=== PATIENT | male | born 1925 | race Caucasian/White ===

== ENCOUNTER 2017-06-09 22:09 | Inpatient (IN) | payer OTHER, MEDICARE ==
[2017-06-09 22:15] VITALS: BP 149/76; PULSE 70; RESP 16; TEMP 97.6; O2SAT 98
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
[2017-06-09 22:54] LABS: AUTOMATED NEUTROPHIL # 6.5 TH/MM3 (1.8-7.7); BASOPHIL % 0.6 % (0.0-2.0); EOSINOPHIL # 0.1 TH/MM3 (0-0.4); EOSINOPHIL % 0.7 % (0.0-4.0); HEMATOCRIT 37.7 % (39.0-51.0); HEMOGLOBIN 13.1 GM/DL (13.0-17.0); MEAN CELL VOLUME 89.4 FL (80.0-100.0); MEAN CORPUSCULAR HGB CONC 34.7 % (32.0-36.0); MEAN PLATELET VOLUME 7.1 FL (7.0-11.0); MONO % 6.8 % (0.0-8.0); MONOCYTE # 0.5 TH/MM3 (0-0.9); NEUT % 79.9 % (16.0-70.0); PLATELET COUNT 277 TH/MM3 (150-450); RED BLOOD COUNT 4.21 MIL/MM3 (4.50-5.90); RED CELL DISTRIBUTION WIDTH 13.9 % (11.6-17.2); WHITE BLOOD COUNT 8.1 TH/MM3 (4.0-11.0)
[2017-06-09 23:10] LABS: ALBUMIN 3.9 GM/DL (3.4-5.0); AST (GOT) 27 U/L (15-37); BICARBONATE 26.8 MEQ/L (21.0-32.0); BLOOD UREA NITROGEN 17 MG/DL (7-18); CALCIUM 9.2 MG/DL (8.5-10.1); CHLORIDE 100 MEQ/L (98-107); CREATININE 1.44 MG/DL (0.60-1.30); GLOMERULAR FILTRATION RATE 46 ML/MIN (>89); GLUCOSE,RANDOM 91 MG/DL (74-106); SODIUM (NA) 133 MEQ/L (136-145)
[2017-06-09 23:11] LABS: ALT (GPT) 49 U/L (12-78)
[2017-06-09 23:21] LABS: ALKALINE PHOSPHATASE 139 U/L (45-117); TOTAL BILIRUBIN ADULT 0.2 MG/DL (0.2-1.0)
[2017-06-10 00:25] LABS: BILIRUBIN, URINE NEG (NEG); BLOOD, URINE NEG (NEG); GLUCOSE,URINE NEG (NEG); HYALINE CAST, URINE 1 /lpf (RARE); KETONE, URINE NEG (NEG); MUCUS URINE FEW /lpf (OCC); NITRITE,URINE NEG (NEG); PH, URINE 5.5 (5.0-8.5); SQUAMOUS EPITHELIAL CELL URINE <1 /hpf (0-5); URINE COLOR YELLOW (YELLW/STRAW); URINE LEUKOCYTE ESTERASE NEG (NEG)
--- NOTE | 2017-06-10 00:42 | PD ---
Physical Exam Date Seen by Provider: Jun 10, 2017 Time Seen by Provider: 00:41 Narrative For full history and physical examination please see previous provider's note. Data Data Last Documented VS Vital Signs Date Time Temp Pulse Resp B/P (MAP) Pulse Ox O2 Delivery O2 Flow Rate FiO2 06/09/17 22:15 97.6 70 16 149/76 (100) 98 Orders Orders Complete Blood Count With Diff (06/09/17 22:22) Comprehensive Metabolic Panel (06/09/17 22:22) Thyroid Stimulating Hormone (06/09/17 22:22) Psych Screen (06/09/17 22:22) Drug Screen, Random Urine (06/09/17 22:22) Urinalysis - C+S If Indicated (06/09/17 23:50) Labs Laboratory Tests Test 06/09/17 22:40 06/10/17 00:05 White Blood Count 8.1 TH/MM3 Red Blood Count 4.21 MIL/MM3 Hemoglobin 13.1 GM/DL Hematocrit 37.7 % Mean Corpuscular Volume 89.4 FL Mean Corpuscular Hemoglobin 31.0 PG Mean Corpuscular Hemoglobin Concent 34.7 % Red Cell Distribution Width 13.9 % Platelet Count 277 TH/MM3 Mean Platelet Volume 7.1 FL Neutrophils (%) (Auto) 79.9 % Lymphocytes (%) (Auto) 12.0 % Monocytes (%) (Auto) 6.8 % Eosinophils (%) (Auto) 0.7 % Basophils (%) (Auto) 0.6 % Neutrophils # (Auto) 6.5 TH/MM3 Lymphocytes # (Auto) 1.0 TH/MM3 Monocytes # (Auto) 0.5 TH/MM3 Eosinophils # (Auto) 0.1 TH/MM3 Basophils # (Auto) 0.0 TH/MM3 CBC Comment DIFF FINAL Differential Comment Blood Urea Nitrogen 17 MG/DL Creatinine 1.44 MG/DL Random Glucose 91 MG/DL Total Protein 7.0 GM/DL Albumin 3.9 GM/DL Calcium Level 9.2 MG/DL Alkaline Phosphatase 139 U/L Aspartate Amino Transf (AST/SGOT) 27 U/L Alanine Aminotransferase (ALT/SGPT) 49 U/L Total Bilirubin 0.2 MG/DL Sodium Level 133 MEQ/L Potassium Level 4.7 MEQ/L Chloride Level 100 MEQ/L Carbon Dioxide Level 26.8 MEQ/L Anion Gap 6 MEQ/L Estimat Glomerular Filtration Rate 46 ML/MIN Thyroid Stimulating Hormone 3rd Gen 2.400 uIU/ML Urine Color YELLOW Urine Turbidity CLEAR Urine pH 5.5 Urine Specific [place] 1.013 Urine Protein NEG mg/dL Urine Glucose (UA) NEG mg/dL Urine Ketones NEG mg/dL Urine Occult Blood NEG Urine Nitrite NEG Urine Bilirubin NEG Urine Urobilinogen LESS THAN 2.0 MG/DL Urine Leukocyte Esterase NEG Urine RBC LESS THAN 1 /hpf Urine WBC 1 /hpf Urine Squamous Epithelial Cells <1 /hpf Urine Hyaline Casts 1 /lpf Urine Mucus FEW /lpf Microscopic Urinalysis Comment CULT NOT INDICATED Urine Opiates Screen NEG Urine Barbiturates Screen NEG Urine Amphetamines Screen NEG Urine Benzodiazepines Screen POS Urine Cocaine Screen NEG Urine Cannabinoids Screen NEG MDM Medical Record Reviewed: Yes Supervised Visit with TOBI: Yes Narrative Course I assumed care of this patient when Dr. Guajardo shift ended. Labs reviewed, no acute findings identified. Patient is medically cleared for psychiatric evaluation. Patient has been resting Comfortably, he has been cooperative and calm while in the emergency department. Diagnosis Primary Impression: Medical clearance for psychiatric admission Scripts Unable to Obtain Active Prescriptions or Reported Meds Condition: Stable Adri Machuca Jun 10, 2017 00:42
[2017-06-10] MEDS ORDERED: AMLO5TAB2 PO (01:10)
[2017-06-10] MEDS ORDERED: ALPR1TAB3 PO (01:10)
[2017-06-10] MEDS ORDERED: LOSA100T PO (01:10)
[2017-06-10 07:08] VITALS: BP 179/81; PULSE 74; RESP 16; TEMP 98.2; O2SAT 99
[2017-06-10] MEDS ORDERED: amLODIPine BESYLATE 5 MG TAB PO ONE (08:00)
[2017-06-10] MEDS ORDERED: LOSARTAN 50 MG TAB PO ONE (08:00)
[2017-06-10] MEDS ORDERED: amLODIPine BESYLATE 5 MG TAB PO SCH (09:00)
[2017-06-10] MEDS ORDERED: ALUMINUM/MAGNESIUM/SIMETH 30 ML CUP PO PRN (09:00)
[2017-06-10] MEDS ORDERED: LORazepam 2 MG/ML VIAL IM PRN (09:00)
[2017-06-10] MEDS ORDERED: LORazepam 1 MG TAB PO PRN (09:00)
[2017-06-10] MEDS ORDERED: MAGNESIUM HYDROXIDE SUSP 30 ML CUP PO PRN (09:00)
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
[2017-06-10] MEDS: QUEtiapine FUMARATE 25 MG TAB PO SCH ×2 (10:07→12:00)
[2017-06-10] MEDS: NICOTINE 21 MG/24 HR PATCH T-DERMAL SCH (10:07)
[2017-06-10 10:41] VITALS: BP 148/68; PULSE 70; RESP 20; O2SAT 100
[2017-06-10 13:10] VITALS: BP 102/59; PULSE 66; RESP 18; TEMP 98.2; O2SAT 96
[2017-06-10 18:15] VITALS: BP 157/75; PULSE 72; RESP 16; TEMP 98
[2017-06-10 18:16] VITALS: BP 157/75; PULSE 72; RESP 16; TEMP 98
[2017-06-10] MEDS: REMOVE OLD NICODERM (NICOTINE) PATCH T-DERMAL SCH (20:55)
[2017-06-11 05:30] VITALS: BP 218/94; PULSE 72
[2017-06-11] MEDS ORDERED: amLODIPine BESYLATE 5 MG TAB PO ONE (05:30)
[2017-06-11 06:00] VITALS: BP 218/94; PULSE 73; RESP 16; TEMP 98.1; O2SAT 95
[2017-06-11 06:15] VITALS: BP 181/94; PULSE 80
[2017-06-11] MEDS: QUEtiapine FUMARATE 25 MG TAB PO SCH ×2 (09:00→12:00)
[2017-06-11] MEDS: NICOTINE 21 MG/24 HR PATCH T-DERMAL SCH (09:00)
[2017-06-11 09:16] LABS: BICARBONATE 29.4 MEQ/L (21.0-32.0); BLOOD UREA NITROGEN 20 MG/DL (7-18); CALCIUM 10.1 MG/DL (8.5-10.1); CHLORIDE 98 MEQ/L (98-107); CHOLESTEROL 202 MG/DL (120-200); CHOLESTEROL/ HDL RATIO 2.25 RATIO; CREATININE 1.07 MG/DL (0.60-1.30); GLOMERULAR FILTRATION RATE 65 ML/MIN (>89); GLUCOSE,RANDOM 73 MG/DL (74-106); HDL CHOLESTEROL 89.4 MG/DL (40.0-60.0); LDL CHOLESTEROL 92 MG/DL (0-99); SODIUM (NA) 133 MEQ/L (136-145); TRIGLYCERIDES 101 MG/DL (42-150)
[2017-06-11 09:30] VITALS: BP 153/77; PULSE 85
[2017-06-11] MEDS: LOSARTAN 50 MG TAB PO SCH (09:35)
[2017-06-11] MEDS: amLODIPine BESYLATE 5 MG TAB PO SCH (09:35)
[2017-06-11 16:43] LABS: HEMOGLOBIN A1C 5.3 % (4.3-6.0)
--- NOTE | 2017-06-11 16:43 | HHI.PYPN ---
Subjective Remarks Patient initially admitted by Dr. Kohler, his initial psychiatric H&P reviewed and agreed with. I have completed the initial psychiatric template admission orders and also review the med reconciliation. Patient seen in the day room with nurse practitioner Violette, medical student Jeremy, patient is alert confused and disoriented in all 4 spheres white male he is calm and pleasant with us. He has no idea about what led to this hospitalization. He said he was from [place]. At this time patient does meet criteria for involuntary psychiatric hospitalization Dr. Kohler was done first opinion petition supporting Gallo act I concur I will do second opinion petition supporting Gallo act. He he does not have capacity thus will ask for healthcare surrogate and guardian advocate. Review of Systems Except as stated in HPI: all other systems reviewed are Neg Mental Status Examination Appearance: Disheveled Consciousness: Alert Orientation: Person Motor Activity: Abnormal gait Speech: Hesitant, Incoherent Language: Adequate Fund of Knowledge: Inadequate Attention and Concentration: Inadequate Memory: Impaired Mood: Appropriate Affect: Appropriate Thought Process & Associations: Loose associations, Disorganized Thought Content: Bizarre thinking Hallucination Type: None Delusion Type: Paranoid Suicidal Ideation: No Suicidal Plan: No Suicidal Intention: No Homicidal Ideation: No Homicidal Plan: No Homicidal Intention: No Insight: Poor Judgment: Poor Results Labs Test 06/11/17 07:45 Blood Urea Nitrogen 20 MG/DL Creatinine 1.07 MG/DL Random Glucose 73 MG/DL Calcium Level 10.1 MG/DL Sodium Level 133 MEQ/L Potassium Level 4.7 MEQ/L Chloride Level 98 MEQ/L Carbon Dioxide Level 29.4 MEQ/L Anion Gap 6 MEQ/L Estimat Glomerular Filtration Rate 65 ML/MIN Triglycerides Level 101 MG/DL Cholesterol Level 202 MG/DL LDL Cholesterol 92 MG/DL HDL Cholesterol 89.4 MG/DL Cholesterol/HDL Ratio 2.25 RATIO Vitals/IOs Vital Signs Date Time Temp Pulse Resp B/P (MAP) Pulse Ox O2 Delivery O2 Flow Rate FiO2 06/11/17 09:30 85 153/77 (102) 06/11/17 06:00 98.1 16 95 06/10/17 10:41 Room Air Intake and Output 06/11/17 06/11/17 06/12/17 08:00 16:00 00:00 Intake Total 120 ml Balance 120 ml Assessment & Plan Problem List: (1) DEMENTIA IN OTH DISEASES CLASSD ELSWHR W BEHAVIORAL DISTURB ICD Codes: F02.81 - DEMENTIA IN OTH DISEASES CLASSD ELSWHR W BEHAVIORAL DISTURB (2) ALZHEIMER'S DISEASE WITH LATE ONSET ICD Codes: G30.1 - ALZHEIMER'S DISEASE WITH LATE ONSET Assessment & Plan Estimated LOS: days 5-7 days patient continues demented confused does meet Gallo criteria I will cosign second p.m. petition started by Dr. Kohler. He also hospice consult [facility] consult with us. Will attempt to reach patient 's family get further information and discuss diagnosis treatment recommendations Justification for Cont. Inpt. At this time patient decompensated placed a lower level of care Discharge Planning To be determined Request HC Surrog/Guard Advoc?: Yes Bob Arambula MD Jun 11, 2017 16:43
[2017-06-11 18:53] VITALS: BP 156/70; PULSE 86; RESP 22; O2SAT 95
[2017-06-11] MEDS: REMOVE OLD NICODERM (NICOTINE) PATCH T-DERMAL SCH (21:00)
[2017-06-12 06:23] VITALS: BP 157/77; PULSE 95; RESP 18; TEMP 98.1; O2SAT 96
[2017-06-12 08:23] VITALS: BP 131/85; PULSE 100
[2017-06-12] MEDS: LOSARTAN 50 MG TAB PO SCH (08:25)
[2017-06-12] MEDS: amLODIPine BESYLATE 5 MG TAB PO SCH (08:25)
[2017-06-12] MEDS: NICOTINE 21 MG/24 HR PATCH T-DERMAL SCH (08:35)
[2017-06-12] MEDS: QUEtiapine FUMARATE 25 MG TAB PO SCH ×2 (08:35→12:59)
--- NOTE | 2017-06-12 13:07 | HHI.PYPN ---
Subjective Remarks Patient was seen in [place] with nurse practitioner Violette, nurse Renetta, patient 's daughter and son-in-law. They verified his long history of dementia, living with them for the past few years, with increased sundowning behaviors getting more angry labile somewhat intimidating at night. Though his resistance to compliant with medications also. They do wish for him to return home when he stabilizes. 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 Will change Seroquel to 25 mg 2 PM and 8 PM, daughter also states that her father and she wished that he would be a DNR I will order that Review of Systems Except as stated in HPI: all other systems reviewed are Neg Mental Status Examination Appearance: Disheveled Consciousness: Alert Orientation: Person Motor Activity: Abnormal gait Speech: Hesitant, Incoherent Language: Adequate Fund of Knowledge: Inadequate Attention and Concentration: Inadequate Memory: Impaired Mood: Appropriate Affect: Appropriate Thought Process & Associations: Loose associations, Disorganized Thought Content: Bizarre thinking Hallucination Type: None Delusion Type: Paranoid Suicidal Ideation: No Suicidal Plan: No Suicidal Intention: No Homicidal Ideation: No Homicidal Plan: No Homicidal Intention: No Insight: Poor Judgment: Poor Results Vitals/IOs Vital Signs Date Time Temp Pulse Resp B/P (MAP) Pulse Ox O2 Delivery O2 Flow Rate FiO2 06/12/17 08:23 100 131/85 (100) 06/12/17 06:23 98.1 18 96 06/10/17 10:41 Room Air Assessment & Plan Problem List: (1) DEMENTIA IN OTH DISEASES CLASSD ELSWHR W BEHAVIORAL DISTURB ICD Codes: F02.81 - DEMENTIA IN OTH DISEASES CLASSD ELSWHR W BEHAVIORAL DISTURB (2) ALZHEIMER'S DISEASE WITH LATE ONSET ICD Codes: G30.1 - ALZHEIMER'S DISEASE WITH LATE ONSET Assessment & Plan Estimated LOS: days patient is demented and confused, no significant problems. Family mentions that he has shown some marked increase behavior changes late afternoon into the early evenings. Some medication adjustments above Justification for Cont. Inpt. At this time patient decompensated placed in the lower level of care Discharge Planning Hopefully to return home with family Request HC Surrog/Guard Advoc?: Yes Bob Arambula MD Jun 12, 2017 13:07
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
[2017-06-12] MEDS ORDERED: RESP: ALBUTEROL 2.5 MG/IPRATROPIUM 0.5 MG NEB (PRN) NEB (15:00)
[2017-06-12] MEDS: RESP: ALBUTEROL 2.5 MG/IPRATROPIUM 0.5 MG NEB (SCH) NEB ×2 (16:00→22:51)
--- NOTE | 2017-06-12 16:07 | PD.TTN ---
Patient Problems 1. Discharge planning 2. Medication compliance 3. Knowledge deficit 4. Lack of coping skills Progress Toward Goals Provider Present: Dr. Lakeisha Arambula Provider Input: 06/12/17 somewhat new and started on medications which need titration over a few more days Psychiatric Counselors Present: Radha Goodwin LCSW Psych Therapist Input: 06/12/17 daugther and family is involved in care of the patient and daughter would like him home once stable and stated today that she feels he appeared well today during the visit Group Spec/RT/OT/KASPER Present: RANJITH Hess Group Spec/RT/OT/KASPER Input: 06/12/17 has not attended groups with encouragement and appears very confused Radha Goodwin LCSW Jun 12, 2017 16:07
[2017-06-12 17:18] VITALS: BP 144/64; PULSE 88; RESP 18; TEMP 98.9; O2SAT 97
[2017-06-12] MEDS: BUDESONIDE-FORMOTEROL 160/4.5 MCG INHALER INH SCH (21:32)
[2017-06-13 05:52] VITALS: BP 136/76; PULSE 100; RESP 20; TEMP 98; O2SAT 96
[2017-06-13] MEDS: RESP: ALBUTEROL 2.5 MG/IPRATROPIUM 0.5 MG NEB (SCH) NEB ×2 (09:30→16:00)
[2017-06-13] MEDS: LOSARTAN 50 MG TAB PO SCH (09:39)
[2017-06-13] MEDS: QUEtiapine FUMARATE 25 MG TAB PO SCH ×2 (09:39→13:44)
[2017-06-13] MEDS: amLODIPine BESYLATE 5 MG TAB PO SCH (09:39)
[2017-06-13] MEDS: BUDESONIDE-FORMOTEROL 160/4.5 MCG INHALER INH SCH ×2 (09:39→20:45)
[2017-06-13 11:50] VITALS: O2SAT 85
--- NOTE | 2017-06-13 13:38 | HHI.PYPN ---
Subjective Remarks Patient seen in day room with medical student Jeremy and nurse Kaz, chart review , patient refusing his Seroquel. Patient sitting in [place] chair he is alert calm markedly disoriented and confused all 4 spheres. Though is been no significant behavioral issues. For now continue treatment Review of Systems Except as stated in HPI: all other systems reviewed are Neg Mental Status Examination Appearance: Disheveled Consciousness: Alert Orientation: Person Motor Activity: Abnormal gait Speech: Hesitant, Incoherent Language: Adequate Fund of Knowledge: Inadequate Attention and Concentration: Inadequate Memory: Impaired Mood: Appropriate Affect: Appropriate Thought Process & Associations: Loose associations, Disorganized Thought Content: Bizarre thinking Hallucination Type: None Delusion Type: Paranoid Suicidal Ideation: No Suicidal Plan: No Suicidal Intention: No Homicidal Ideation: No Homicidal Plan: No Homicidal Intention: No Insight: Poor Judgment: Poor Results Vitals/IOs Vital Signs Date Time Temp Pulse Resp B/P (MAP) Pulse Ox O2 Delivery O2 Flow Rate FiO2 06/13/17 05:52 98.0 100 20 136/76 (96) 96 06/10/17 10:41 Room Air Intake and Output 06/13/17 06/13/17 06/14/17 08:00 16:00 00:00 Intake Total 120 ml 120 ml Balance 120 ml 120 ml Assessment & Plan Problem List: (1) DEMENTIA IN OTH DISEASES CLASSD ELSWHR W BEHAVIORAL DISTURB ICD Codes: F02.81 - DEMENTIA IN OTH DISEASES CLASSD ELSWHR W BEHAVIORAL DISTURB (2) ALZHEIMER'S DISEASE WITH LATE ONSET ICD Codes: G30.1 - ALZHEIMER'S DISEASE WITH LATE ONSET Assessment & Plan Estimated LOS: days patient continues severely demented confused disorganized, showing mixed compliance with medication Justification for Cont. Inpt. At this time patient decompensated placed in a lower level of care Discharge Planning Perhaps return home to family setting Request HC Surrog/Guard Advoc?: Yes Bob Arambula MD Jun 13, 2017 13:38
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
[2017-06-13 18:00] VITALS: BP 172/70; PULSE 105; RESP 20; TEMP 97.7; O2SAT 96
[2017-06-14 06:00] VITALS: BP 168/75; PULSE 101; RESP 16; TEMP 97.8; O2SAT 98
[2017-06-14] MEDS: RESP: ALBUTEROL 2.5 MG/IPRATROPIUM 0.5 MG NEB (SCH) NEB ×4 (08:00→23:49)
[2017-06-14] MEDS: LOSARTAN 50 MG TAB PO SCH (08:49)
[2017-06-14] MEDS: amLODIPine BESYLATE 5 MG TAB PO SCH (08:49)
[2017-06-14] MEDS: QUEtiapine FUMARATE 25 MG TAB PO SCH ×2 (08:49→12:36)
[2017-06-14] MEDS: BUDESONIDE-FORMOTEROL 160/4.5 MCG INHALER INH SCH ×2 (08:54→23:11)
--- NOTE | 2017-06-14 12:24 | HHI.PYPN ---
Subjective Remarks Patient seen in day room with nurse Radha and medical student Jeremy, chart reviewed, patient compliant medication. Patient continues diffusely confused disoriented with gibberish type speech though pleasant and childlike. No significant behavioral problems, the needs much redirection and assistance Review of Systems Except as stated in HPI: all other systems reviewed are Neg Mental Status Examination Appearance: Disheveled Consciousness: Alert Orientation: Person Motor Activity: Abnormal gait Speech: Hesitant, Incoherent Language: Adequate Fund of Knowledge: Inadequate Attention and Concentration: Inadequate Memory: Impaired Mood: Appropriate Affect: Appropriate Thought Process & Associations: Loose associations, Disorganized Thought Content: Bizarre thinking Hallucination Type: None Delusion Type: Paranoid Suicidal Ideation: No Suicidal Plan: No Suicidal Intention: No Homicidal Ideation: No Homicidal Plan: No Homicidal Intention: No Insight: Poor Judgment: Poor Results Vitals/IOs Vital Signs Date Time Temp Pulse Resp B/P (MAP) Pulse Ox O2 Delivery O2 Flow Rate FiO2 06/14/17 06:00 97.8 101 16 168/75 (106) 98 06/10/17 10:41 Room Air Intake and Output 06/14/17 06/14/17 06/14/17 07:59 15:59 23:59 Intake Total 120 ml 122 ml Balance 120 ml 122 ml Assessment & Plan Problem List: (1) DEMENTIA IN OTH DISEASES CLASSD ELSWHR W BEHAVIORAL DISTURB ICD Codes: F02.81 - DEMENTIA IN OTH DISEASES CLASSD ELSWHR W BEHAVIORAL DISTURB (2) ALZHEIMER'S DISEASE WITH LATE ONSET ICD Codes: G30.1 - ALZHEIMER'S DISEASE WITH LATE ONSET Assessment & Plan Estimated LOS: days patient continues diffusely confused disoriented somewhat childlike, though no significant behavioral problems. Compliant medications Justification for Cont. Inpt. At this time patient will decompensate a placed a lower level of care Discharge Planning Continue to need to work with family related to placement issues Request HC Surrog/Guard Advoc?: Yes Bob Arambula MD Jun 14, 2017 12:24
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
[2017-06-14] MEDS: DOCUSATE SODIUM 50 MG/SENNA 8.6 MG TAB PO SCH (21:00)
[2017-06-15] MEDS: LORazepam 2 MG/ML VIAL IM PRN (02:47)
[2017-06-15 06:09] VITALS: BP 138/81; PULSE 109; RESP 19; O2SAT 98
[2017-06-15 08:30] VITALS: BP 144/96
[2017-06-15] MEDS: BUDESONIDE-FORMOTEROL 160/4.5 MCG INHALER INH SCH ×2 (08:31→20:53)
[2017-06-15] MEDS: QUEtiapine FUMARATE 25 MG TAB PO SCH ×2 (08:31→11:51)
[2017-06-15] MEDS: LOSARTAN 50 MG TAB PO SCH (08:32)
[2017-06-15] MEDS: DOCUSATE SODIUM 50 MG/SENNA 8.6 MG TAB PO SCH ×2 (08:32→20:52)
[2017-06-15] MEDS: amLODIPine BESYLATE 5 MG TAB PO SCH (08:32)
[2017-06-15] MEDS: RESP: ALBUTEROL 2.5 MG/IPRATROPIUM 0.5 MG NEB (SCH) NEB ×3 (10:55→23:29)
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
[2017-06-15] MEDS ORDERED: MAGNESIUM HYDROXIDE SUSP 30 ML CUP PO ONE (12:15)
--- NOTE | 2017-06-15 15:04 | HHI.PYPN ---
Subjective Remarks Pt seen and discussed with staff. He was compliant with medications and food. He has been confused but pleasant. He is cooperative with care and has not had behavioral problems to day. No SI/HI. Mental Status Examination Appearance: Disheveled Consciousness: Alert Orientation: Person Motor Activity: Abnormal gait Speech: Hesitant, Incoherent Language: Adequate Fund of Knowledge: Inadequate Attention and Concentration: Inadequate Memory: Impaired Mood: Appropriate Affect: Appropriate Thought Process & Associations: Loose associations, Disorganized Thought Content: Bizarre thinking Hallucination Type: None Delusion Type: Paranoid Suicidal Ideation: No Suicidal Plan: No Suicidal Intention: No Homicidal Ideation: No Homicidal Plan: No Homicidal Intention: No Insight: Poor Judgment: Poor Results Vitals/IOs Vital Signs Date Time Temp Pulse Resp B/P (MAP) Pulse Ox O2 Delivery O2 Flow Rate FiO2 06/15/17 08:30 144/96 (112) 06/15/17 06:09 109 19 98 06/14/17 06:00 97.8 Intake and Output 06/15/17 06/15/17 06/16/17 08:00 16:00 00:00 Intake Total 0 ml Balance 0 ml Assessment & Plan Problem List: (1) DEMENTIA IN OTH DISEASES CLASSD ELSWHR W BEHAVIORAL DISTURB ICD Codes: F02.81 - DEMENTIA IN OTH DISEASES CLASSD ELSWHR W BEHAVIORAL DISTURB (2) ALZHEIMER'S DISEASE WITH LATE ONSET ICD Codes: G30.1 - ALZHEIMER'S DISEASE WITH LATE ONSET Assessment & Plan continue current tx plan. Estimated LOS: days Justification for Cont. Inpt. risk of decompesnation Request HC Surrog/Guard Advoc?: Yes Patricia Bird MD Jun 15, 2017 15:04
[2017-06-15 18:26] VITALS: BP 113/72; PULSE 48; RESP 15; O2SAT 92
[2017-06-16] MEDS: ACETAMINOPHEN 325 MG TAB PO PRN ×2 (01:42→20:26)
[2017-06-16] MEDS: LORazepam 0.5 MG TAB PO PRN (01:42)
[2017-06-16 06:38] VITALS: BP 137/65; PULSE 92; RESP 17; TEMP 97.8; O2SAT 94
[2017-06-16 08:15] VITALS: BP 139/59; PULSE 92
[2017-06-16] MEDS: amLODIPine BESYLATE 5 MG TAB PO SCH (08:21)
[2017-06-16] MEDS: DOCUSATE SODIUM 50 MG/SENNA 8.6 MG TAB PO SCH ×2 (08:21→20:26)
[2017-06-16] MEDS: QUEtiapine FUMARATE 25 MG TAB PO SCH ×2 (08:21→11:49)
[2017-06-16] MEDS: LOSARTAN 50 MG TAB PO SCH (08:21)
[2017-06-16] MEDS: BUDESONIDE-FORMOTEROL 160/4.5 MCG INHALER INH SCH ×2 (08:22→20:27)
[2017-06-16] MEDS: RESP: ALBUTEROL 2.5 MG/IPRATROPIUM 0.5 MG NEB (SCH) NEB (10:00)
--- NOTE | 2017-06-16 16:14 | HHI.PYPN ---
Subjective Remarks Pt seen and discussed with staff. Appetite is poor and he requires coaxing from staff to eat and drink. He has been compliant with medications. Sleep is poor. No SI/HI Mental Status Examination Appearance: Disheveled Consciousness: Alert Orientation: Person Motor Activity: Abnormal gait Speech: Hesitant, Incoherent Language: Adequate Fund of Knowledge: Inadequate Attention and Concentration: Inadequate Memory: Impaired Mood: Appropriate Affect: Appropriate Thought Process & Associations: Loose associations, Disorganized Thought Content: Bizarre thinking Hallucination Type: None Delusion Type: Paranoid Suicidal Ideation: No Suicidal Plan: No Suicidal Intention: No Homicidal Ideation: No Homicidal Plan: No Homicidal Intention: No Insight: Poor Judgment: Poor Results Vitals/IOs Vital Signs Date Time Temp Pulse Resp B/P (MAP) Pulse Ox O2 Delivery O2 Flow Rate FiO2 06/16/17 08:15 92 139/59 (85) 06/16/17 06:38 97.8 17 94 Intake and Output 06/16/17 06/16/17 06/17/17 08:00 16:00 00:00 Intake Total 0 ml Balance 0 ml Assessment & Plan Problem List: (1) DEMENTIA IN OTH DISEASES CLASSD ELSWHR W BEHAVIORAL DISTURB ICD Codes: F02.81 - DEMENTIA IN OTH DISEASES CLASSD ELSWHR W BEHAVIORAL DISTURB (2) ALZHEIMER'S DISEASE WITH LATE ONSET ICD Codes: G30.1 - ALZHEIMER'S DISEASE WITH LATE ONSET Assessment & Plan Continue current tx plan. Estimated LOS: days Justification for Cont. Inpt. risk of decompensation Request HC Surrog/Guard Advoc?: Yes Patricia Bird MD Jun 16, 2017 16:14
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
[2017-06-16] MEDS ORDERED: BISACODYL 10 MG SUPP RECTAL PRN (16:30)
[2017-06-16] MEDS ORDERED: MAGNESIUM HYDROXIDE SUSP 30 ML CUP PO PRN (16:30)
[2017-06-16] MEDS: SENNOSIDES 8.6 MG TAB PO PRN ×2 (16:36→16:45)
[2017-06-16] MEDS: LACTULOSE SYRUP 20 GM/30 ML CUP PO PRN ×2 (16:36→16:46)
[2017-06-16 18:00] VITALS: BP 139/58; PULSE 96; RESP 17; TEMP 98.2; O2SAT 94
[2017-06-16] MEDS ORDERED: diphenhydrAMINE HCL 50 MG/ML VIAL IM SCH (20:00)
[2017-06-16] MEDS ORDERED: diphenhydrAMINE HCL 25 MG CAP PO SCH (20:00)
[2017-06-17] MEDS: LORazepam 2 MG/ML VIAL IM PRN ×2 (01:58→21:43)
[2017-06-17 06:02] VITALS: BP 138/83; PULSE 97; RESP 17; TEMP 98.5
[2017-06-17] MEDS: DOCUSATE SODIUM 50 MG/SENNA 8.6 MG TAB PO SCH ×3 (08:37→20:43)
[2017-06-17] MEDS: LOSARTAN 50 MG TAB PO SCH (08:37)
[2017-06-17] MEDS: amLODIPine BESYLATE 5 MG TAB PO SCH (08:37)
[2017-06-17] MEDS: QUEtiapine FUMARATE 25 MG TAB PO SCH ×2 (08:37→11:22)
[2017-06-17] MEDS: BUDESONIDE-FORMOTEROL 160/4.5 MCG INHALER INH SCH ×3 (08:38→20:43)
[2017-06-17 10:15] LABS: BASOPHIL % 0.4 % (0.0-2.0); EOSINOPHIL # 0.1 TH/MM3 (0-0.4); EOSINOPHIL % 1.5 % (0.0-4.0); HEMATOCRIT 38.3 % (39.0-51.0); HEMOGLOBIN 12.9 GM/DL (13.0-17.0); LYMPH % 10.6 % (9.0-44.0); MEAN CORPUSCULAR HEMOGLOBIN 30.9 PG (27.0-34.0); MEAN CORPUSCULAR HGB CONC 33.6 % (32.0-36.0); MEAN PLATELET VOLUME 7.1 FL (7.0-11.0); MONO % 12.3 % (0.0-8.0); MONOCYTE # 1.1 TH/MM3 (0-0.9); NEUT % 75.2 % (16.0-70.0); PLATELET COUNT 288 TH/MM3 (150-450); RED BLOOD COUNT 4.17 MIL/MM3 (4.50-5.90); RED CELL DISTRIBUTION WIDTH 14.4 % (11.6-17.2); WHITE BLOOD COUNT 9.3 TH/MM3 (4.0-11.0)
[2017-06-17 10:39] LABS: BICARBONATE 26.8 MEQ/L (21.0-32.0); CALCIUM 9.2 MG/DL (8.5-10.1); CREATININE 1.64 MG/DL (0.60-1.30); MAGNESIUM 2.7 MG/DL (1.5-2.5)
--- NOTE | 2017-06-17 10:52 | EKG ---
Date Performed: 06/16/2017 Time Performed: 15:21:17 PTAGE: 89 years EKG: Sinus rhythm NORMAL ECG NO PREVIOUS TRACING DOCTOR: Jasvir Walsh Interpretating Date/Time 06/17/2017 10:50:12
[2017-06-17] MEDS ORDERED: SODIUM CHLOR 0.9% 1000 ML INJ 1,000 ML IV SCH (11:45)
[2017-06-17] MEDS ORDERED: LORazepam 2 MG/ML VIAL IV PUSH PRN (13:00)
[2017-06-17] MEDS: POTASSIUM CHLORIDE INJ 10 MEQ in DEXT 5%-NACL 0.9% 1000 ML INJ 1,000 ML IV SCH (13:00)
[2017-06-17] MEDS ORDERED: SODIUM CHLOR 0.9% 1000 ML INJ 1,000 ML IV ONE (13:00)
--- NOTE | 2017-06-17 13:12 | HHI.PYPN ---
Subjective Remarks Prior to my seeing patient today patient [facility] due to altered mental status rapidly declining kidney functions. Patient's daughter was here and also did recognize the abrupt change in her father. Patient was seen by me with medical student Jeremy and nurse Hallie in his room on 4 [address]. There is markedly tremulous pale and cool with no significant verbal responses. Daughter is confused and upset and anxious to this change in status. She did question the continued use of Seroquel. I respect her questioning and will discontinue Seroquel. A more also call Dr. Ferris the hospitalist. Requested a stat visit from him. He responded quickly with his PA who saw the patient yesterday. They agreed that it appears to be dehydration with kidney failure. The question of Seroquel had any component in this episode. However they do agree to discontinue the Seroquel. We will did talk with the patient's daughter after she seems somewhat calmer and more focused. For now from a psychiatric point of view will discontinue the Seroquel and allow the hospitalists to do management of this patient Review of Systems ROS Limitations: Altered Mental Status Mental Status Examination Appearance: Disheveled Consciousness: Alert Orientation: Person Motor Activity: Abnormal gait Speech: Hesitant, Incoherent Language: Adequate Fund of Knowledge: Inadequate Attention and Concentration: Inadequate Memory: Impaired Mood: Appropriate Affect: Appropriate Thought Process & Associations: Loose associations, Disorganized Thought Content: Bizarre thinking Hallucination Type: None Delusion Type: Paranoid Suicidal Ideation: No Suicidal Plan: No Suicidal Intention: No Homicidal Ideation: No Homicidal Plan: No Homicidal Intention: No Insight: Poor Judgment: Poor Results Labs Test 06/17/17 09:25 White Blood Count 9.3 TH/MM3 Red Blood Count 4.17 MIL/MM3 Hemoglobin 12.9 GM/DL Hematocrit 38.3 % Mean Corpuscular Volume 92.0 FL Mean Corpuscular Hemoglobin 30.9 PG Mean Corpuscular Hemoglobin Concent 33.6 % Red Cell Distribution Width 14.4 % Platelet Count 288 TH/MM3 Mean Platelet Volume 7.1 FL Neutrophils (%) (Auto) 75.2 % Lymphocytes (%) (Auto) 10.6 % Monocytes (%) (Auto) 12.3 % Eosinophils (%) (Auto) 1.5 % Basophils (%) (Auto) 0.4 % Neutrophils # (Auto) 7.0 TH/MM3 Lymphocytes # (Auto) 1.0 TH/MM3 Monocytes # (Auto) 1.1 TH/MM3 Eosinophils # (Auto) 0.1 TH/MM3 Basophils # (Auto) 0.0 TH/MM3 CBC Comment DIFF FINAL Differential Comment Blood Urea Nitrogen 81 MG/DL Creatinine 1.64 MG/DL Random Glucose 74 MG/DL Calcium Level 9.2 MG/DL Magnesium Level 2.7 MG/DL Sodium Level 139 MEQ/L Potassium Level 4.3 MEQ/L Chloride Level 105 MEQ/L Carbon Dioxide Level 26.8 MEQ/L Anion Gap 7 MEQ/L Estimat Glomerular Filtration Rate 40 ML/MIN Vitals/IOs Vital Signs Date Time Temp Pulse Resp B/P (MAP) Pulse Ox O2 Delivery O2 Flow Rate FiO2 06/17/17 06:02 98.5 97 17 138/83 (101) 06/16/17 18:00 94 Intake and Output 06/17/17 06/17/17 06/18/17 08:00 16:00 00:00 Intake Total 180 ml Balance 180 ml Assessment & Plan Problem List: (1) DEMENTIA IN OTH DISEASES CLASSD ELSWHR W BEHAVIORAL DISTURB ICD Codes: F02.81 - DEMENTIA IN OTH DISEASES CLASSD ELSWHR W BEHAVIORAL DISTURB (2) ALZHEIMER'S DISEASE WITH LATE ONSET ICD Codes: G30.1 - ALZHEIMER'S DISEASE WITH LATE ONSET Assessment & Plan Estimated LOS: days patient showing significant altered mental status with dehydration and marked decrease in his kidney function. Will discontinue Seroquel. Will defer to the hospitalist at the present time Justification for Cont. Inpt. The placed on the patient decompensated placed in a lower level of care Discharge Planning To be determined Request HC Surrog/Guard Advoc?: Yes Bob Arambula MD Jun 17, 2017 13:12
--- NOTE | 2017-06-17 14:10 | RADRPT ---
EXAM DATE/TIME: 06/17/2017 13:50 [facility] COMPARISON: No previous studies available for comparison. INDICATIONS : Altered mental status. RADIATION DOSE: 52.13 CTDIvol (mGy) MEDICAL HISTORY : Hypertension. Dementia. SURGICAL HISTORY : None. ENCOUNTER: Initial ACUITY: 1 day PAIN SCALE: 0/10 LOCATION: chest TECHNIQUE: Multiple contiguous axial images were obtained of the head. Using automated exposure control and adj ustment of the mA and/or kV according to patient size, radiation dose was kept as low as reasonably a chievable to obtain optimal diagnostic quality images. DICOM format image data is available electro nically for review and comparison. FINDINGS: The examination demonstrates cortical atrophy and microvascular ischemic demyelinative change. There is an old area of cortical infarct involving the left caudate nucleus and basal ganglia. No acute int racranial hemorrhage is seen. No mass lesion is identified. The appearance of the posterior fossa is unremarkable. Visualized portions of orbits are intact. The sinuses are intact. CONCLUSION: 1. Cortical atrophy and magnetic. 2. 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 3. No acute intracranial abnormality identified. Raul Acosta MD on June 17, 2017 at 14:07 Board Certified Radiologist. This report was verified electronically.
[2017-06-17 14:20] LABS: BILIRUBIN, URINE NEG (NEG); BLOOD, URINE NEG (NEG); GLUCOSE,URINE NEG (NEG); KETONE, URINE 10 mg/dL (NEG); MUCUS URINE FEW /lpf (OCC); NITRITE,URINE NEG (NEG); PH, URINE 5.5 (5.0-8.5); URINE COLOR YELLOW (YELLW/STRAW); URINE LEUKOCYTE ESTERASE NEG (NEG)
--- NOTE | 2017-06-17 15:05 | RADRPT ---
EXAM DATE/TIME: 06/17/2017 13:58 [facility] COMPARISON: No previous studies available for comparison. INDICATIONS : Distention. MEDICAL HISTORY : None. SURGICAL HISTORY : None. ENCOUNTER: Initial ACUITY: 1 day PAIN SCORE: 0/10 LOCATION: Bilateral abdomen FINDINGS: There is minimal gas distention of large and small bowel, more small bowel and large bowel. There is no free air. Gas is seen in the rectum. Lung base is clear The portion of the bony skeleton visual ized is unremarkable. CONCLUSION: Probable ileus as described above. Small bowel dilated to 3.9 cm. Catrachito Acosta MD FACR on June 17, 2017 at 15:02 Board Certified Radiologist. This report was verified electronically.
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
[2017-06-17] MEDS ORDERED: SOD PHOSPHATE/SOD BIPHOSPHATE (ADULT) ENEMA 133ML RECTAL PRN (17:00)
[2017-06-17 18:30] VITALS: PULSE 98; RESP 18; O2SAT 93
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
[2017-06-18 06:00] VITALS: BP_SYST 104; BP_SYST 134; BP_DIAS 104; BP_DIAS 62; PULSE 94; RESP 18; TEMP 97.9; O2SAT 90
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
[2017-06-18 10:42] LABS: AUTOMATED NEUTROPHIL # 8.2 TH/MM3 (1.8-7.7); BASOPHIL % 0.4 % (0.0-2.0); EOSINOPHIL # 0.1 TH/MM3 (0-0.4); EOSINOPHIL % 1.2 % (0.0-4.0); HEMATOCRIT 38.3 % (39.0-51.0); HEMOGLOBIN 13.1 GM/DL (13.0-17.0); LYMPH % 10.2 % (9.0-44.0); LYMPHOCYTE # 1.1 TH/MM3 (1.0-4.8); MEAN CELL VOLUME 91.3 FL (80.0-100.0); MEAN CORPUSCULAR HEMOGLOBIN 31.1 PG (27.0-34.0); MEAN CORPUSCULAR HGB CONC 34.1 % (32.0-36.0); MEAN PLATELET VOLUME 7.4 FL (7.0-11.0); MONOCYTE # 1.3 TH/MM3 (0-0.9); NEUT % 76.2 % (16.0-70.0); PLATELET COUNT 284 TH/MM3 (150-450); RED CELL DISTRIBUTION WIDTH 13.9 % (11.6-17.2); WHITE BLOOD COUNT 10.7 TH/MM3 (4.0-11.0)
[2017-06-18 10:58] LABS: BICARBONATE 27.5 MEQ/L (21.0-32.0); CALCIUM 9.2 MG/DL (8.5-10.1); CREATININE 1.43 MG/DL (0.60-1.30); MAGNESIUM 2.6 MG/DL (1.5-2.5)
[2017-06-18] MEDS: LOSARTAN 50 MG TAB PO SCH (11:20)
[2017-06-18] MEDS: BUDESONIDE-FORMOTEROL 160/4.5 MCG INHALER INH SCH ×2 (11:20→20:34)
[2017-06-18] MEDS: DOCUSATE SODIUM 50 MG/SENNA 8.6 MG TAB PO SCH ×2 (11:22→20:34)
[2017-06-18] MEDS: amLODIPine BESYLATE 5 MG TAB PO SCH (11:22)
[2017-06-18] MEDS: POTASSIUM CHLORIDE INJ 10 MEQ in DEXT 5%-NACL 0.9% 1000 ML INJ 1,000 ML IV SCH (15:12)
--- NOTE | 2017-06-18 15:15 | MG ---
cc: MERYL ESPINOSA Lab No:[id number] Date: 06/17/2017 Age: Sex: M Race: Cc. TECHNIQUE This is a 17 channel EEG. DESCRIPTION The background rhythm is a symmetrical alpha rhythm frequency 8 Hz amplitude is 20-40 microvolts. There is a fairly prominent muscle artifact identified during periods of twitching. There is some slowing at times in the theta range related to drowsiness. Sharp activity is mainly muscle artifact. I do not see any definite epileptiform features. INTERPRETATION Normal EEG. I do not see any epileptiform discharges. Photic stimulation results in a fairly well-developed driving response. MD JENNY Ramos/brittny /2:52 PM /3:01 PM
--- NOTE | 2017-06-18 16:19 | PD.TTN ---
Patient Problems 1. Discharge planning 2. Medication compliance 3. Knowledge deficit 4. Lack of coping skills Progress Toward Goals Provider Present: Dr. Lakeisha Arambula Provider Input: 06/18/17 carmen are not functioning well, up on medical now 06/12/17 somewhat new and started on medications which need titration over a few more days Psychiatric Counselors Present: Radha Goodwin LCSW Psych Therapist Input: 06/18/17 family wants patient home, once stable, daughter was here yesterday, and was upset with patient's symptom once stable will refer home with [facility] and Services available such as Gricelda Prado/private duty/respite care 06/12/17 daugther and family is involved in care of the patient and daughter would like him home once stable and stated today that she feels he appeared well today during the visit Group Spec/RT/OT/KASPER Present: RANJITH Hess Group Spec/RT/OT/KASPER Input: 06/18/17 unable to attend groups or tolerate any groups 06/12/17 has not attended groups with encouragement and appears very confused Radha Goodwin LCSW Jun 18, 2017 16:19
--- NOTE | 2017-06-18 16:24 | HHI.PYPN ---
Subjective Remarks Patient seen in his room with medical student Jeremy. Patient showing increased alertness affect responsiveness. His eyes are clear it appears he watching some television. Remains markedly disorganized confused and demented. Though at times makes attempts to answer questions. For now we'll continue with medicines giving the basic treatment. We will observe Review of Systems Except as stated in HPI: all other systems reviewed are Neg Mental Status Examination Appearance: Disheveled Consciousness: Alert Orientation: Person Motor Activity: Abnormal gait Speech: Hesitant, Incoherent Language: Adequate Fund of Knowledge: Inadequate Attention and Concentration: Inadequate Memory: Impaired Mood: Appropriate Affect: Appropriate Thought Process & Associations: Loose associations, Disorganized Thought Content: Bizarre thinking Hallucination Type: None Delusion Type: Paranoid Suicidal Ideation: No Suicidal Plan: No Suicidal Intention: No Homicidal Ideation: No Homicidal Plan: No Homicidal Intention: No Insight: Poor Judgment: Poor Results Labs Test 06/18/17 10:00 White Blood Count 10.7 TH/MM3 Red Blood Count 4.20 MIL/MM3 Hemoglobin 13.1 GM/DL Hematocrit 38.3 % Mean Corpuscular Volume 91.3 FL Mean Corpuscular Hemoglobin 31.1 PG Mean Corpuscular Hemoglobin Concent 34.1 % Red Cell Distribution Width 13.9 % Platelet Count 284 TH/MM3 Mean Platelet Volume 7.4 FL Neutrophils (%) (Auto) 76.2 % Lymphocytes (%) (Auto) 10.2 % Monocytes (%) (Auto) 12.0 % Eosinophils (%) (Auto) 1.2 % Basophils (%) (Auto) 0.4 % Neutrophils # (Auto) 8.2 TH/MM3 Lymphocytes # (Auto) 1.1 TH/MM3 Monocytes # (Auto) 1.3 TH/MM3 Eosinophils # (Auto) 0.1 TH/MM3 Basophils # (Auto) 0.0 TH/MM3 CBC Comment DIFF FINAL Differential Comment Hematology Comments Blood Urea Nitrogen 63 MG/DL Creatinine 1.43 MG/DL Random Glucose 80 MG/DL Calcium Level 9.2 MG/DL Magnesium Level 2.6 MG/DL Sodium Level 144 MEQ/L Potassium Level 4.9 MEQ/L Chloride Level 109 MEQ/L Carbon Dioxide Level 27.5 MEQ/L Anion Gap 8 MEQ/L Estimat Glomerular Filtration Rate 47 ML/MIN Vitals/IOs Vital Signs Date Time Temp Pulse Resp B/P (MAP) Pulse Ox O2 Delivery O2 Flow Rate FiO2 06/18/17 06:00 97.9 94 18 134/104 (114) 90 104/62 (76) Intake and Output 06/18/17 06/18/17 06/19/17 08:00 16:00 00:00 Intake Total 360 ml Balance 360 ml Assessment & Plan Problem List: (1) DEMENTIA IN OTH DISEASES CLASSD ELSWHR W BEHAVIORAL DISTURB ICD Codes: F02.81 - DEMENTIA IN OTH DISEASES CLASSD ELSWHR W BEHAVIORAL DISTURB (2) ALZHEIMER'S DISEASE WITH LATE ONSET ICD Codes: G30.1 - ALZHEIMER'S DISEASE WITH LATE ONSET Assessment & Plan Estimated LOS: days patient metabolic status is improving, he is showing improvement in his altered mental status from yesterday. Will refrain from any psychotropics at this time continue working with medical attending Justification for Cont. Inpt. At this time patient decompensated placed a lower level of care Discharge Planning To be determined Request HC Surrog/Guard Advoc?: Yes Bob Arambula MD Jun 18, 2017 16:24
[2017-06-18 18:18] VITALS: BP 111/78; PULSE 109; RESP 18; TEMP 97.5; O2SAT 95
[2017-06-18] MEDS: LORazepam 0.5 MG TAB PO PRN (20:36)
[2017-06-19] MEDS: POTASSIUM CHLORIDE INJ 10 MEQ in DEXT 5%-NACL 0.9% 1000 ML INJ 1,000 ML IV SCH ×2 (01:43→02:45)
[2017-06-19 06:11] VITALS: BP 164/87; PULSE 95; RESP 18; TEMP 97.7; O2SAT 93
[2017-06-19 08:08] LABS: AUTOMATED NEUTROPHIL # 8.6 TH/MM3 (1.8-7.7); BASOPHIL % 0.2 % (0.0-2.0); EOSINOPHIL # 0.1 TH/MM3 (0-0.4); EOSINOPHIL % 0.7 % (0.0-4.0); HEMATOCRIT 39.3 % (39.0-51.0); HEMOGLOBIN 13.2 GM/DL (13.0-17.0); LYMPH % 12.2 % (9.0-44.0); LYMPHOCYTE # 1.4 TH/MM3 (1.0-4.8); MEAN CELL VOLUME 92.1 FL (80.0-100.0); MEAN CORPUSCULAR HGB CONC 33.7 % (32.0-36.0); MEAN PLATELET VOLUME 7.1 FL (7.0-11.0); MONO % 10.9 % (0.0-8.0); MONOCYTE # 1.2 TH/MM3 (0-0.9); PLATELET COUNT 341 TH/MM3 (150-450); RED BLOOD COUNT 4.27 MIL/MM3 (4.50-5.90); RED CELL DISTRIBUTION WIDTH 14.1 % (11.6-17.2); WHITE BLOOD COUNT 11.3 TH/MM3 (4.0-11.0)
[2017-06-19 08:36] LABS: ALBUMIN 3.9 GM/DL (3.4-5.0); ALT (GPT) 76 U/L (12-78); AST (GOT) 84 U/L (15-37); BICARBONATE 26.4 MEQ/L (21.0-32.0); BLOOD UREA NITROGEN 52 MG/DL (7-18); CALCIUM 9.7 MG/DL (8.5-10.1); CHLORIDE 111 MEQ/L (98-107); CREATININE 1.34 MG/DL (0.60-1.30); GLOMERULAR FILTRATION RATE 50 ML/MIN (>89); GLUCOSE,RANDOM 101 MG/DL (74-106); SODIUM (NA) 146 MEQ/L (136-145)
[2017-06-19 08:39] LABS: ALKALINE PHOSPHATASE 141 U/L (45-117); TOTAL BILIRUBIN ADULT 0.5 MG/DL (0.2-1.0); TOTAL PROTEIN 7.6 GM/DL (6.4-8.2)
--- NOTE | 2017-06-19 09:23 | HHI.PYPN ---
Subjective Remarks Patient seen today sitting in [place] chair in [place] by nurses station, patient is seen in the floor staff, chart review, patient's labs and EEG reviewed EEG is read as normal. Labs show some mild improvement. Patient sitting in [place] chair he is alert continues diffusely confused and disoriented but is able to focus briefly on me able to answer questions though markedly disorganized with responses. He is more reactive. His tremors have subsided to a degree. For now continue treatment. Will defer to the medical team at this time for medications. He is show no significant behavioral problems Review of Systems Except as stated in HPI: all other systems reviewed are Neg Mental Status Examination Appearance: Disheveled Consciousness: Alert Orientation: Person Motor Activity: Abnormal gait Speech: Hesitant, Incoherent Language: Adequate Fund of Knowledge: Inadequate Attention and Concentration: Inadequate Memory: Impaired Mood: Appropriate Affect: Appropriate Thought Process & Associations: Loose associations, Disorganized Thought Content: Bizarre thinking Hallucination Type: None Delusion Type: Paranoid Suicidal Ideation: No Suicidal Plan: No Suicidal Intention: No Homicidal Ideation: No Homicidal Plan: No Homicidal Intention: No Insight: Poor Judgment: Poor Results Labs Test 06/18/17 10:00 06/19/17 07:22 White Blood Count 10.7 TH/MM3 11.3 TH/MM3 Red Blood Count 4.20 MIL/MM3 4.27 MIL/MM3 Hemoglobin 13.1 GM/DL 13.2 GM/DL Hematocrit 38.3 % 39.3 % Mean Corpuscular Volume 91.3 FL 92.1 FL Mean Corpuscular Hemoglobin 31.1 PG 31.0 PG Mean Corpuscular Hemoglobin Concent 34.1 % 33.7 % Red Cell Distribution Width 13.9 % 14.1 % Platelet Count 284 TH/MM3 341 TH/MM3 Mean Platelet Volume 7.4 FL 7.1 FL Neutrophils (%) (Auto) 76.2 % 76.0 % Lymphocytes (%) (Auto) 10.2 % 12.2 % Monocytes (%) (Auto) 12.0 % 10.9 % Eosinophils (%) (Auto) 1.2 % 0.7 % Basophils (%) (Auto) 0.4 % 0.2 % Neutrophils # (Auto) 8.2 TH/MM3 8.6 TH/MM3 Lymphocytes # (Auto) 1.1 TH/MM3 1.4 TH/MM3 Monocytes # (Auto) 1.3 TH/MM3 1.2 TH/MM3 Eosinophils # (Auto) 0.1 TH/MM3 0.1 TH/MM3 Basophils # (Auto) 0.0 TH/MM3 0.0 TH/MM3 CBC Comment DIFF FINAL DIFF FINAL Differential Comment Hematology Comments Blood Urea Nitrogen 63 MG/DL 52 MG/DL Creatinine 1.43 MG/DL 1.34 MG/DL Random Glucose 80 MG/DL 101 MG/DL Calcium Level 9.2 MG/DL 9.7 MG/DL Magnesium Level 2.6 MG/DL Sodium Level 144 MEQ/L 146 MEQ/L Potassium Level 4.9 MEQ/L 4.3 MEQ/L Chloride Level 109 MEQ/L 111 MEQ/L Carbon Dioxide Level 27.5 MEQ/L 26.4 MEQ/L Anion Gap 8 MEQ/L 9 MEQ/L Estimat Glomerular Filtration Rate 47 ML/MIN 50 ML/MIN Total Protein 7.6 GM/DL Albumin 3.9 GM/DL Alkaline Phosphatase 141 U/L Aspartate Amino Transf (AST/SGOT) 84 U/L Alanine Aminotransferase (ALT/SGPT) 76 U/L Total Bilirubin 0.5 MG/DL Vitals/IOs Vital Signs Date Time Temp Pulse Resp B/P (MAP) Pulse Ox O2 Delivery O2 Flow Rate FiO2 06/19/17 06:11 97.7 95 18 164/87 (112) 93 Intake and Output 06/19/17 06/19/17 06/20/17 08:00 16:00 00:00 Intake Total 180 ml Balance 180 ml Assessment & Plan Problem List: (1) DEMENTIA IN OTH DISEASES CLASSD ELSWHR W BEHAVIORAL DISTURB ICD Codes: F02.81 - DEMENTIA IN OTH DISEASES CLASSD ELSWHR W BEHAVIORAL DISTURB (2) ALZHEIMER'S DISEASE WITH LATE ONSET ICD Codes: G30.1 - ALZHEIMER'S DISEASE WITH LATE ONSET Assessment & Plan Estimated LOS: days patient appears to be somewhat better medically he is more alert with better eye contact is sitting up more responsive to the environment and to questions. His tremors have significantly diminished also. Labs have also been reviewed. For now continue treatment Justification for Cont. Inpt. At this time patient decompensated placed in a lower level of care Discharge Planning We need to discuss this with patient's daughter Request HC Surrog/Guard Advoc?: Yes Bob Arambula MD Jun 19, 2017 09:23
[2017-06-19] MEDS: BUDESONIDE-FORMOTEROL 160/4.5 MCG INHALER INH SCH ×3 (09:31→20:46)
[2017-06-19] MEDS: DOCUSATE SODIUM 50 MG/SENNA 8.6 MG TAB PO SCH ×3 (09:31→20:46)
[2017-06-19] MEDS: LOSARTAN 50 MG TAB PO SCH (09:31)
[2017-06-19] MEDS: amLODIPine BESYLATE 5 MG TAB PO SCH (09:31)
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
[2017-06-19 18:37] VITALS: BP 177/76; PULSE 103; RESP 18; TEMP 97.1; O2SAT 94
[2017-06-20] MEDS: LORazepam 2 MG/ML VIAL IM PRN (02:10)
[2017-06-20 06:41] VITALS: BP 135/70; PULSE 104; RESP 19; TEMP 97.8; O2SAT 94
[2017-06-20] MEDS: BUDESONIDE-FORMOTEROL 160/4.5 MCG INHALER INH SCH ×2 (09:00→21:00)
[2017-06-20] MEDS: DOCUSATE SODIUM 50 MG/SENNA 8.6 MG TAB PO SCH ×2 (09:24→21:35)
[2017-06-20] MEDS: LOSARTAN 50 MG TAB PO SCH (09:25)
[2017-06-20] MEDS: amLODIPine BESYLATE 5 MG TAB PO SCH (09:25)
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
[2017-06-20 09:40] LABS: AUTOMATED NEUTROPHIL # 10.9 TH/MM3 (1.8-7.7); BASOPHIL % 0.3 % (0.0-2.0); EOSINOPHIL # 0.1 TH/MM3 (0-0.4); EOSINOPHIL % 0.7 % (0.0-4.0); HEMOGLOBIN 14.2 GM/DL (13.0-17.0); LYMPH % 9.3 % (9.0-44.0); LYMPHOCYTE # 1.2 TH/MM3 (1.0-4.8); MEAN CELL VOLUME 91.8 FL (80.0-100.0); MEAN CORPUSCULAR HEMOGLOBIN 30.9 PG (27.0-34.0); MEAN CORPUSCULAR HGB CONC 33.7 % (32.0-36.0); MONO % 6.9 % (0.0-8.0); MONOCYTE # 0.9 TH/MM3 (0-0.9); NEUT % 82.8 % (16.0-70.0); PLATELET COUNT 361 TH/MM3 (150-450); RED BLOOD COUNT 4.58 MIL/MM3 (4.50-5.90); RED CELL DISTRIBUTION WIDTH 14.1 % (11.6-17.2); WHITE BLOOD COUNT 13.1 TH/MM3 (4.0-11.0)
[2017-06-20 10:08] LABS: BICARBONATE 30.7 MEQ/L (21.0-32.0); CALCIUM 9.6 MG/DL (8.5-10.1); CREATININE 1.34 MG/DL (0.60-1.30)
--- NOTE | 2017-06-20 11:31 | HHI.PYPN ---
Subjective Remarks Patient seen in [place] prior to [facility] with floor staff. Patient continues to show improvement in his affect and his alertness. He continues to be markedly disoriented demented his responses are somewhat confusing though at times now intelligible. Patient was seen in [facility] patient's case continued for 4 weeks per Risk Professional Luisa. There is still a consideration of placement in rehabilitation type facility. We'll need to continue working with patient's daughter. It appears she is stating now that she is unable to have him return home with her Review of Systems Except as stated in HPI: all other systems reviewed are Neg Mental Status Examination Appearance: Disheveled Consciousness: Alert Orientation: Person Motor Activity: Abnormal gait Speech: Hesitant, Incoherent Language: Adequate Fund of Knowledge: Inadequate Attention and Concentration: Inadequate Memory: Impaired Mood: Appropriate Affect: Appropriate Thought Process & Associations: Loose associations, Disorganized Thought Content: Bizarre thinking Hallucination Type: None Delusion Type: Paranoid Suicidal Ideation: No Suicidal Plan: No Suicidal Intention: No Homicidal Ideation: No Homicidal Plan: No Homicidal Intention: No Insight: Poor Judgment: Poor Results Labs Test 06/20/17 09:18 White Blood Count 13.1 TH/MM3 Red Blood Count 4.58 MIL/MM3 Hemoglobin 14.2 GM/DL Hematocrit 42.0 % Mean Corpuscular Volume 91.8 FL Mean Corpuscular Hemoglobin 30.9 PG Mean Corpuscular Hemoglobin Concent 33.7 % Red Cell Distribution Width 14.1 % Platelet Count 361 TH/MM3 Mean Platelet Volume 7.0 FL Neutrophils (%) (Auto) 82.8 % Lymphocytes (%) (Auto) 9.3 % Monocytes (%) (Auto) 6.9 % Eosinophils (%) (Auto) 0.7 % Basophils (%) (Auto) 0.3 % Neutrophils # (Auto) 10.9 TH/MM3 Lymphocytes # (Auto) 1.2 TH/MM3 Monocytes # (Auto) 0.9 TH/MM3 Eosinophils # (Auto) 0.1 TH/MM3 Basophils # (Auto) 0.0 TH/MM3 CBC Comment DIFF FINAL Differential Comment Blood Urea Nitrogen 49 MG/DL Creatinine 1.34 MG/DL Random Glucose 87 MG/DL Calcium Level 9.6 MG/DL Sodium Level 150 MEQ/L Potassium Level 4.4 MEQ/L Chloride Level 111 MEQ/L Carbon Dioxide Level 30.7 MEQ/L Anion Gap 8 MEQ/L Estimat Glomerular Filtration Rate 50 ML/MIN Vitals/IOs Vital Signs Date Time Temp Pulse Resp B/P (MAP) Pulse Ox O2 Delivery O2 Flow Rate FiO2 06/20/17 06:41 97.8 104 19 135/70 (91) 94 Assessment & Plan Problem List: (1) DEMENTIA IN OTH DISEASES CLASSD ELSWHR W BEHAVIORAL DISTURB ICD Codes: F02.81 - DEMENTIA IN OTH DISEASES CLASSD ELSWHR W BEHAVIORAL DISTURB (2) ALZHEIMER'S DISEASE WITH LATE ONSET ICD Codes: G30.1 - ALZHEIMER'S DISEASE WITH LATE ONSET Assessment & Plan Estimated LOS: days patient is dementia does persist though his altered mental status secondary to severe dehydration and kidney measures is resolving. For now continue treatment. Continue to work on placement issues Justification for Cont. Inpt. This time patient would decompensated placed in the lower level of care Discharge Planning Need to work with patient's daughter. It appears she is unable to accept him back in her home Request HC Surrog/Guard Advoc?: Yes Bob Arambula MD Jun 20, 2017 11:31
[2017-06-20 18:00] VITALS: BP 149/86; PULSE 99; RESP 19; TEMP 98; O2SAT 95
[2017-06-20] MEDS: LORazepam 0.5 MG TAB PO PRN (21:35)
[2017-06-21 06:14] VITALS: BP 108/54; PULSE 104; RESP 16; O2SAT 94
[2017-06-21 08:23] LABS: AUTOMATED NEUTROPHIL # 10.1 TH/MM3 (1.8-7.7); BASOPHIL # 0.1 TH/MM3 (0-0.2); BASOPHIL % 0.5 % (0.0-2.0); EOSINOPHIL # 0.2 TH/MM3 (0-0.4); EOSINOPHIL % 1.3 % (0.0-4.0); HEMATOCRIT 41.7 % (39.0-51.0); HEMOGLOBIN 13.7 GM/DL (13.0-17.0); LYMPH % 10.9 % (9.0-44.0); LYMPHOCYTE # 1.4 TH/MM3 (1.0-4.8); MEAN CELL VOLUME 92.6 FL (80.0-100.0); MEAN CORPUSCULAR HEMOGLOBIN 30.4 PG (27.0-34.0); MEAN CORPUSCULAR HGB CONC 32.8 % (32.0-36.0); MEAN PLATELET VOLUME 7.5 FL (7.0-11.0); MONO % 6.6 % (0.0-8.0); MONOCYTE # 0.8 TH/MM3 (0-0.9); NEUT % 80.7 % (16.0-70.0); PLATELET COUNT 352 TH/MM3 (150-450); RED BLOOD COUNT 4.51 MIL/MM3 (4.50-5.90); WHITE BLOOD COUNT 12.6 TH/MM3 (4.0-11.0)
[2017-06-21] MEDS: amLODIPine BESYLATE 5 MG TAB PO SCH (09:00)
[2017-06-21] MEDS: LOSARTAN 50 MG TAB PO SCH (09:00)
[2017-06-21] MEDS: DOCUSATE SODIUM 50 MG/SENNA 8.6 MG TAB PO SCH (09:00)
[2017-06-21] MEDS: BUDESONIDE-FORMOTEROL 160/4.5 MCG INHALER INH SCH (09:00)
[2017-06-21 09:03] LABS: ALBUMIN 3.6 GM/DL (3.4-5.0); ALKALINE PHOSPHATASE 135 U/L (45-117); ALT (GPT) 66 U/L (12-78); AST (GOT) 39 U/L (15-37); BICARBONATE 30.8 MEQ/L (21.0-32.0); BLOOD UREA NITROGEN 60 MG/DL (7-18); CALCIUM 9.5 MG/DL (8.5-10.1); CHLORIDE 113 MEQ/L (98-107); CREATININE 1.69 MG/DL (0.60-1.30); GLOMERULAR FILTRATION RATE 38 ML/MIN (>89); GLUCOSE,RANDOM 75 MG/DL (74-106); MAGNESIUM 2.4 MG/DL (1.5-2.5); PHOSPHORUS 3.4 MG/DL (2.5-4.9); SODIUM (NA) 152 MEQ/L (136-145); TOTAL BILIRUBIN ADULT 0.5 MG/DL (0.2-1.0)
[2017-06-21] MEDS ORDERED: LOSA100T PO (09:31)
[2017-06-21] MEDS ORDERED: AMLO5TAB2 PO (09:31)
[2017-06-21] MEDS ORDERED: Budeson-Formot 160-4.5 Mcg Inh INH (09:31)
[2017-06-21] MEDS ORDERED: PERI PO (09:31)
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
[2017-06-21 16:32] LABS: HEMOGLOBIN A1C 5.3 % (4.3-6.0)
== END 2017-06-21 11:30 | disposition home or self-care (01) | DRG 57 ==
LOC: NEPD 22:09 → NEDA 06-10 08:52 → H250 06-10 12:00 → H4EA 06-17 11:45
PROVIDERS: ADMIT Psychiatry & Neurology Psychiatry; ATTEND Psychiatry & Neurology Psychiatry
DX: G30.1 Alzheimer's disease with late onset (principal); N17.9 Acute kidney failure, unspecified; F02.81 Dementia in other diseases classified elsewhere, unspecified severity, with behavioral disturbance; J44.9 Chronic obstructive pulmonary disease, unspecified; E86.0 Dehydration; I10 Essential (primary) hypertension; H91.90 Unspecified hearing loss, unspecified ear; K59.00 Constipation, unspecified; R00.0 Tachycardia, unspecified; F31.9 Bipolar disorder, unspecified; Z66 Do not resuscitate; R25.1 Tremor, unspecified; Z86.73 Personal history of transient ischemic attack (TIA), and cerebral infarction without residual deficits; Z81.8 Family history of other mental and behavioral disorders
CPT/HCPCS: 36600; 70450; 74018; 76775; 80048; 80053; 80061; 80307; 81001; 82140; 82805; 82948; 83036; 83735; 84100; 84439; 84443; 85025; 93005; 94618; 94640; 94664; 95819; 99285; J2060; J3480; J7030; J7042